=== PATIENT | male | born 1995 | race Caucasian/White ===

== ENCOUNTER 2019-03-10 14:19 | Emergency (ER) | payer OTHER ==
[2019-03-10 14:25] VITALS: BP 136/75; PULSE 72; TEMP 98; BMI 22.5
--- NOTE | 2019-03-10 16:50 | PDOC ---
History of Present Illness - General Chief Complaint: Pain Stated Complaint: LT. ANKLE PAIN Time Seen by Provider: 03/10/19 16:41 - History of Present Illness Initial Comments: 03/10/19 16:47 23-year-old male without comorbidities presents for evaluation of left ankle pain. He describes an inversion type injury 2 weeks ago while playing basketball however the ankle became increasingly swollen and tender as he ignored the injury. He presents for further evaluation today. Past History - Past Medical History Allergies/Adverse Reactions: Allergies Allergy/AdvReac Type Severity Reaction Status Date / Time No Known Allergies Allergy Verified 03/10/19 14:25 Home Medications: Ambulatory Orders NK [No Known Home Medication] 06/18/18 COPD: No - Suicide/Smoking/Psychosocial Hx Smoking History: Never smoked Information on smoking cessation initiated: No Hx Alcohol Use: No Drug/Substance Use Hx: No Review of Systems - Review of Systems Musculoskeletal: Yes: Joint Pain *Physical Exam - Vital Signs Last Vital Signs Temp Pulse Resp BP Pulse Ox 98 F 72 17 136/75 99 03/10/19 14:23 03/10/19 14:23 03/10/19 14:23 03/10/19 14:23 03/10/19 14:23 - Physical Exam Comments: 03/10/19 16:48 Left ankle skin color and temperature are normal. There is a moderate amount of swelling about the medial and lateral aspect of the left ankle. There is no tenderness about the knee proximal fibula or along its distal coarse the medial lateral malleolus are tender ATFL is tender deltoid is tender tenderness about the Achilles with a negative Arguello's test. No instability no tenderness about the navicular base of the fifth metatarsal. He is neurovascularly intact. No gross sensorimotor deficits. ED Treatment Course - RADIOLOGY Radiology Studies Ordered: Category Date Time Status ANKLE-LEFT [RAD] Stat Radiology 03/10/19 16:47 Ordered Medical Decision Making - Medical Decision Making 03/10/19 16:48 No evidence of fracture trauma or destructive process. This is a lateral ankle sprain with a secondary Achilles tendinitis. Weight-bear as tolerated with Aircast and crutches and follow-up with orthopedic surgery for further evaluation and treatment options. *DC/Admit/Observation/Transfer Diagnosis at time of Disposition: Moderate left ankle sprain, Achilles tendinitis of left lower extremity - Discharge Dispostion Disposition: HOME Condition at time of disposition: Stable Decision to Admit order: No - Referrals Referrals: Luis Alberto Montemayor MD [Primary Care Provider] - Alf Tabares DO [Staff Physician] - - Patient Instructions Printed Discharge Instructions: Ankle Sprain, DI for Ankle Sprain Additional Instructions: Tylenol and Motrin as directed for pain. Return to the emergency room for worsening symptoms. Follow-up with orthopedic surgery in 1-2 days for further evaluation and treatment options. He may weight-bear as tolerated with the Aircast and crutches. - Post Discharge Activity
== END 2019-03-10 18:13 | disposition home or self-care (01) ==
LOC: JERFT 14:19
DX: S93.402A Sprain of unspecified ligament of left ankle, initial encounter (principal); M76.62 Achilles tendinitis, left leg; X50.1XXA Overexertion from prolonged static or awkward postures, initial encounter; Y93.67 Activity, basketball; Y92.310 Basketball court as the place of occurrence of the external cause; Y99.8 Other external cause status
CPT/HCPCS: 73610-TC-LT-FY; 99281-25

== ENCOUNTER 2022-12-23 13:38 | Emergency (ER) | payer OTHER ==
[2022-12-23 13:57] VITALS: BP 140/68; PULSE 78; RESP 18; TEMP 98; BMI 31.8
[2022-12-23] MEDS ORDERED: ACETAMINOPHEN 1000 MG/100 ML BAG IVPB ONE (15:10)
[2022-12-23] MEDS ORDERED: LACTATED RINGERS SOLUTION 1,000 ML/1,000 ML INFUS.BAG IV SCH (15:15)
[2022-12-23 15:55] LABS: BASO % 0.1 % (0-2.0); EOS % 1.6 % (0-4.5); HEMATOCRIT 44.4 % (35.4-49); HEMOGLOBIN 15.2 GM/dL (11.7-16.9); LYMPH % 24.2 % (8-40); MCH 30.4 pg (25.7-33.7); MCHC 34.3 g/dl (32.0-35.9); MEAN CELL VOLUME 88.6 fl (80-96); MEAN PLT VOLUME 8.6 fl (7.5-11.1); MONO % 12.5 % (3.8-10.2); NEUT % 61.6 % (42.8-82.8); PLATELET COUNT 225 10^3/uL (134-434); RBC 5.01 M/mm3 (4.00-5.60); RDW 13.7 % (11.9-15.9); WHITE BLOOD COUNT 5.5 K/mm3 (4.0-10.0)
[2022-12-23 16:16] LABS: ALBUMIN 3.5 g/dl (3.4-5.0); BLOOD UREA NITROGEN 11.4 mg/dL (7-18); CALCIUM 9.4 mg/dL (8.5-10.1)
[2022-12-23 16:20] LABS: CREATININE 1.2 mg/dL (0.55-1.3); PHOSPHOROUS 4.2 mg/dL (2.5-4.9)
[2022-12-23 16:21] LABS: BILIRUBIN,TOTAL 0.4 mg/dL (0.2-1); TOT PROT 7.2 g/dl (6.4-8.2)
== END 2022-12-23 17:20 | disposition home or self-care (01) ==
LOC: JER 13:38
DX: R04.0 Epistaxis (principal)
CPT/HCPCS: 36415; 80053; 83735; 84100; 85025; 99283-25